=== PATIENT | male | born 1955 | race Caucasian/White ===

== ENCOUNTER → 2018-08-14 09:06 | Outpatient (CLI) | payer BC, SELFPAY ==
--- NOTE | 2018-08-14 09:17 | CA_ITS ---
PROCEDURE: 2-D M-mode and color Doppler study INDICATIONS FOR THE TEST: Chest pain+ COPD Heart Murmur Tobacco Smoking+ Palpitations Fatigue Syncope Edema Hypertension+Diabetes Mellitus Rheumatic Fever SOB+AGUDELO Obesity Hyperlipidemia+ Family History HD Additional History PATIENT INFORMATION HEIGHT: 66 WEIGHT:150 GENDER: Male B/P:145/68 2-D/M-MODE INTERPRETATION: 2-D MEASUREMENTS OBSERVED VALUES IN CMS Right Ventricular Dimension (RVDd) 2.0 Interventricular Septum (Thickness)(IVsd) 0.6 Left Ventricular Internal Dimensions(LVIDd) 5.5 Left Ventricular Posterior Wall (Thickness)(LVPWd) 0.8 Aortic Root 1.9 Aortic Cusp Separation 1.6 Left Atrial Dimensions (LAD) 3.3 2D 1. Left atrium is mildly enlarged, left ventricle is normal size, mild concentric left ventricular hypertrophy, visually estimated ejection fraction 55% with no regional wall motion abnormality. 2. The right atrium and right ventricle are normal size and contractility. 3. The aortic valve is minimally thickened and fibrosed. 4. The mitral and tricuspid valvular grossly normal. 5. The pulmonic valve is poorly visualized. 6. No significant pericardial effusion noted. DOPPLER INTERROGATION: Doppler interrogation of the aortic, mitral and tricuspid valvular presence of mild mitral and tricuspid regurgitation, tricuspid regurgitation jet velocity is inadequate for calculation of the right ventricular systolic pressure, grade 2 diastolic dysfunction seen with tissue Doppler evidence of raised left atrial pressure. CONCLUSION: 1. Mildly enlarged left atrium, normal left ventricular size, mild concentric left ventricular hypertrophy, visually estimated ejection fraction 55% with no regional wall motion abnormality, grade 2 diastolic dysfunction seen with tissue Doppler evidence of raised left atrial pressure. 2. Mild mitral and tricuspid regurgitation 3. No significant pericardial effusion noted.
== END ==
PROVIDERS: PCP Family Medicine; Referring Provider Nurse Practitioner Family; Visit Provider Nurse Practitioner Family
DX: R07.9 Chest pain, unspecified (principal); I10 Essential (primary) hypertension; E78.5 Hyperlipidemia, unspecified; Z72.0 Tobacco use
CPT/HCPCS: 93306

== ENCOUNTER → 2018-08-16 09:13 | Outpatient (CLI) | payer BC, SELFPAY ==
[2018-08-16 13:17] LABS: Alanine Aminotransferase 57 U/L (12-78); Albumin Level 4.2 gm/dL (3.4-5.0); Albumin/Globulin Ratio 1.4 (1.1-1.8); Alkaline Phosphatase 94 U/L (46-116); Anion Gap 11.5 mEq/L (5-15); Aspartate Amino Transferase 21 U/L (15-37); Bilirubin,Total 0.4 mg/dL (0.2-1.0); Blood Urea Nitrogen 17 mg/dL (7-18); Calcium 8.9 mg/dL (8.5-10.1); Carbon Dioxide 31 mmol/L (21.0-32.0); Chloride 102 mmol/L (98-107); Chol/HDL Ratio 5.3 (1-3.5); Cholesterol 169 mg/dL (140-200); Creatinine,Serum 0.74 mg/dL (0.70-1.30); Estimated Glomerular Filt Rate 108 ml/min (>60); GFR (African American) 130 ML/MIN (>60); Glucose 132 mg/dL (74-106); HDL Cholesterol 32 mg/dL (27-67); LDL Cholesterol 97 mg/dL (0-130); Potassium 4.5 mmoL/L (3.5-5.1); Sodium 140 mmol/L (136-145); Total Protein,Serum 7.2 gm/dL (6.4-8.2); Triglycerides 202 mg/dL (30-200); VLDL Cholesterol 40 mg/dL (0-40)
[2018-08-18 13:07] LABS: PSA, Free 0.17 ng/mL; Prostate Specific Ag 0.7 ng/mL (0.0-4.0)
== END ==
PROVIDERS: Visit Provider Nurse Practitioner
DX: I10 Essential (primary) hypertension (principal); E78.5 Hyperlipidemia, unspecified; Z12.5 Encounter for screening for malignant neoplasm of prostate
CPT/HCPCS: 36415; 80053; 80061; 84153; 84154

== ENCOUNTER → 2018-08-21 08:28 | Outpatient (CLI) | payer BC, SELFPAY ==
[2018-08-21 09:03] LABS: Basophils # 0.1 K/mm3 (0-0.2); Basophils % 0.9 % (0.1-2.0); Eosinophils # 0.4 K/mm3 (0.0-0.4); Hematocrit 45.9 % (42.0-52.0); Hemoglobin 15.8 g/dL (14.1-18.0); Lymphocytes # 2.2 K/mm3 (0.7-4.5); Lymphocytes % 28.1 % (10-50); Mean Corpuscular HGB Conc 34.4 g/dL (31.8-35.4); Mean Corpuscular Hemoglobin 30.7 pg (27.0-31.2); Mean Corpuscular Volume 89.1 fl (80-94); Monocytes # 0.4 K/mm3 (0.1-1.0); Monocytes % 5.8 % (1.7-9.3); Neutrophils # 4.6 K/mm3 (1.8-7.8); Neutrophils % 60.2 % (37.0-80.0); Platelet Count 215 K/mm3 (142-424); Red Blood Count 5.15 M/mm3 (4.60-6.20); Red Cell Distribution Width 13.7 % (11.5-17.5); White Blood Count 7.7 K/mm3 (4.8-10.8)
[2018-08-21 09:54] LABS: Alanine Aminotransferase 58 U/L (12-78); Albumin Level 4.2 gm/dL (3.4-5.0); Alkaline Phosphatase 93 U/L (46-116); Aspartate Amino Transferase 17 U/L (15-37); Bilirubin,Direct 0.1 mg/dL (0.0-0.2); Bilirubin,Indirect 0.5 mg/dL (0.0-0.9); Bilirubin,Total 0.6 mg/dL (0.2-1.0); Chol/HDL Ratio 4.7 (1-3.5); Cholesterol 168 mg/dL (140-200); HDL Cholesterol 36 mg/dL (27-67); LDL Cholesterol 114 mg/dL (0-130); Total Protein,Serum 7.2 gm/dL (6.4-8.2); Triglycerides 92 mg/dL (30-200); VLDL Cholesterol 18 mg/dL (0-40)
== END ==
PROVIDERS: Visit Provider Urology
DX: R07.9 Chest pain, unspecified (principal); R94.31 Abnormal electrocardiogram [ECG] [EKG]; R06.00 Dyspnea, unspecified
CPT/HCPCS: 36415; 80061; 80076; 85025

== ENCOUNTER → 2018-08-25 14:45 | Outpatient (CLI) | payer BC, SELFPAY ==
--- NOTE | 2018-08-25 14:57 | CT_ITS ---
CT chest wo con HISTORY: Pulmonary nodules, chest pain, smoker ITS.REASON: cp ORDERING PHYSICIAN: Jatin Alvarez MD PATIENT AGE: 63 years COMPARISON: None Technique: Axial images obtained. Sagittal, and coronal reformatted images are also generated and reviewed. All CT scans at the facility use one or more dose reduction, viz: automated exposure control, ma/kV adjustment per patient size (including targeted exams where dose is matched to indication, i.e. head), or iterative reconstruction technique. FINDINGS: No evidence of aortic aneurysm. Scattered small nodes are present in the mediastinum and axilla. No mediastinal or hilar. No coronary artery calcification apparent. COPD. Biapical scarring. There is a calcified granuloma in the right lower lobe medially. No central obstructing lesions. No suspicious pulmonary nodules. There is a faint groundglass opacity in the left apex at 6 mm nonspecific. Upper abdominal images show a 2 mm stone in the mid polar region of the right kidney. No acute bony findings. IMPRESSION: 1. COPD with biapical scarring and old granulomatous disease. 2. 6 mm groundglass opacity left upper lobe nonspecific. Suggest 6-12 month follow-up in this patient with positive smoking history. 3. Nonobstructing right nephrolithiasis
== END ==
LOC: RAD 14:48
PROVIDERS: PCP Family Medicine; Visit Provider Internal Medicine
DX: I51.9 Heart disease, unspecified (principal); R06.00 Dyspnea, unspecified; R07.9 Chest pain, unspecified; R94.31 Abnormal electrocardiogram [ECG] [EKG]
CPT/HCPCS: 71250

== ENCOUNTER → 2019-02-09 10:19 | Outpatient (CLI) | payer BC, SELFPAY ==
--- NOTE | 2019-02-09 10:29 | XR_ITS ---
PROCEDURE: XR HIP RT 2-3V W/PELVIS CLINICAL INDICATION: RT HIP PAIN COMPARISON: No exams were available for comparison FINDINGS: No fracture or dislocation is evident. No significant degenerative change. No lytic or blastic change. Unremarkable soft tissues. Sclerosis is present involving the right SI joint inferiorly IMPRESSION: 1. Negative right hip. 2. Sclerosis of the right SI joint inferiorly Dictated by: Víctor Chavez MD 02/09/2019 11:41 Electronically signed by Víctor Chavez MD in [place] 02/09/2019 11:41
--- NOTE | 2019-02-09 10:29 | XR_ITS ---
PROCEDURE: XR HIP LT 2-3V W/PELVIS CLINICAL INDICATION: LT HIP PAIN COMPARISON: ABDPELW/O CT ABD PELVIS W/O CONTRAST from 06/09/2012 XR HIP RT 2-3V W/PELVIS from 02/09/2019 FINDINGS: No fracture or dislocation is evident. No significant degenerative change. No lytic or blastic change. Unremarkable soft tissues. There is sclerosis of the inferior aspect of the left SI joint. There is a small area of sclerosis involving the left inferior pubic ramus nonspecific. IMPRESSION: 1. Negative left hip 2. Mild sclerosis left SI joint inferiorly Dictated by: Víctor Chavez MD 02/09/2019 11:43 Electronically signed by Víctor Chavez MD in [facility] 02/09/2019 11:43
--- NOTE | 2019-02-09 10:29 | XR_ITS ---
PROCEDURE: XR LUMBAR SPINE MIN 4V CLINICAL INDICATION: LOW BACK PAIN COMPARISON: No exams were available for comparison FINDINGS: There is normal alignment. No fracture or dislocation. No lytic or blastic change. There is some mild sclerosis of the inferior aspect of both SI joints. IMPRESSION: 1. Negative lumbar spine. 2. Mild sclerosis of the SI joints inferiorly Dictated by: Víctor Chavez MD 02/09/2019 11:40 Electronically signed by Víctor Chavez MD in [facility] 02/09/2019 11:40
--- NOTE | 2019-02-09 10:29 | XR_ITS ---
PROCEDURE: XR KNEE LT 3V CLINICAL INDICATION: LT KNEE PAIN COMPARISON: No exams were available for comparison FINDINGS: No fracture or dislocation. No lytic or blastic change. There is normal mineralization. The joint spaces are well-preserved. No significant degenerative/arthritic changes. No erosive changes evident. Other findings:None. IMPRESSION: No acute findings. Dictated by: Víctor hCavez MD 02/09/2019 11:43 Electronically signed by Víctor Chavez MD in [facility] 02/09/2019 11:43
== END ==
PROVIDERS: PCP Family Medicine; Visit Provider Nurse Practitioner Family
DX: M25.562 Pain in left knee (principal); M25.551 Pain in right hip; M25.552 Pain in left hip; M54.16 Radiculopathy, lumbar region
CPT/HCPCS: 72110; 73502; 73562

== ENCOUNTER → 2020-01-09 08:19 | Outpatient (CLI) | payer BC, MEDICAID, SELFPAY ==
[2020-01-09 10:03] LABS: Coronavirus 19 IgG Antibody Negative (Negative); Coronavirus 19 IgM Antibody Negative (Negative)
== END ==
PROVIDERS: Visit Provider Internal Medicine Gastroenterology
DX: Z01.89 Encounter for other specified special examinations (principal); Z12.11 Encounter for screening for malignant neoplasm of colon; Z13.810 Encounter for screening for upper gastrointestinal disorder; R19.7 Diarrhea, unspecified
CPT/HCPCS: 36415; 86328

== ENCOUNTER 2020-01-11 09:13 | Day surgery (SDC) | payer MEDICAID, SELFPAY ==
[2020-01-05 13:11] VITALS: BMI 25.4
[2020-01-11] VITALS (7 sets, daily range): BP systolic 117–180; BP diastolic 63–81; PULSE 55–63; RESP 16–18; TEMP 36.3–36.4; O2SAT 95–100
--- NOTE | 2020-01-11 10:49 | HMH.ANESCL ---
[facility] Anesthesia Checklist - Patient Identification Patient Identification: Arm Band - Structural Data Admitted From: Home Planned Operative Procedure/s: colonoscopy Consent for Planned Operative Procedure(s) Verified: Yes Verified Documents: Surgical Consent, History and Physical - NPO Status Verified Time NPO: 00:00 - Additional verifications Anesthesia Reactions: No - Airway Assessment C-Spine Mobility Assessed: Yes (mp2) TMJ Mobility Assessed: Yes Dentition: Dentures-good fit - Neurological Assessment Level of Consciousness: Awake, Alert - Anesthesia Plan Anesthesia Risk discussed: Yes Anesthesia Plan: Verified ASA Class: III Anesthesia Type: MAC [facility] History I have reviewed the patient's past medical history: Yes Medical History: Reports:: Chronic Obstructive Pulmonary Disease (COPD), Gastroesophageal Reflux Disease(GERD), Hyperlipidemia, Hypertension Denies:: Cancer, Diabetes Mellitus Type 1, Diabetes Mellitus Type 2, MRSA, Seizures *Have you ever received a pneumonia vaccine?: No *Have you received a flu vaccine this season?: No Anesthesia experience/problems:: nac Other Surgeries: Yes: Appendectomy Amputation: No Fractures: No - *Social History Last grade of school completed: GED Smoking Status: Former smoker #Yrs smoked (if former smoker): 40 Alcohol Intake: never Substance Use Type: former substance user, marijuana *Occupational Status:: employed *Travel in the last 8 weeks: None Family Hx:: Coronary Artery Disease, Heart Attack, Cancer, Diabetes
--- NOTE | 2020-01-11 11:43 | HMH.PROC ---
[facility] Procedure Note Procedure Note:: Upper Endoscopy Procedure Report: Esophagogastroduodenoscopy with cold biopsies and TTS balloon dilation Endoscopost: Quique Harper II, MD Referring Physician: Carlos Bustos MD Date of Procedure: January 11, 2020 Equipment: Olympus GIF 180 standard upper endoscope Sedation: MAC sedation Indications: Mr. Rodríguez is a 64-year-old gentleman with postprandial bloating and some left upper quadrant abdominal discomfort. He has had early satiety and intermittent dysphagia. He did have heartburn but this is now well controlled with omeprazole. He is here for diagnostic panendoscopy and this is his first upper endoscopy. He reports no nausea, vomiting, hematemesis or melena. He reports no weight loss or hematochezia. Procedure: Prior to the procedure, a history and physical exam was performed, and patient's medications and allergies were reviewed. The risks, benefits and alternatives of the sedation and procedure were discussed with the patient. All questions were answered and informed consent was obtained. The patient was brought to the procedure room. Patient identification and proposed procedure were verified by the physician and the nurse. The patient was placed in a left lateral decubitus position and the scope was passed under direct vision. Throughout the procedure, the patient's blood pressure, pulse, and oxygen saturations were monitored continuously. The upper GI endoscopy was accomplished without difficulty. The patient tolerated the procedure well. Findings: The scope was passed directly into the upper esophagus and advanced to the third portion of the duodenum. The post bulbar duodenum and duodenal bulb were normal with normal mucosa and conniventes. The scope was withdrawn through a normal duodenal bulb and pylorus into the stomach. There was mild linear reactive gastropathy of the antrum and body of the stomach. The remainder of the antrum, body and fundus of the stomach were grossly normal. Upon retroflexion there was a small 2 cm hiatal hernia. 2 biopsies were taken in the antrum and along the lesser curvature for histology to rule out gastritis and/or H pylori. The scope was then withdrawn into the esophagus. There was a serrated Z line. There was no evidence of reflux esophagitis, Madison's or Schatzki's ring. There were tertiary contractions and evidence of moderate esophageal dysmotility. The entire esophagus was dilated to 60 [place]/20 mm with a TTS hydrostatic balloon. The remainder of the esophageal mucosa was normal. Impression: 1. Nonerosive GERD with moderate esophageal dysmotility and small 2 cm hiatal hernia 2. Linear reactive gastropathy Plan: I will follow-up the biopsies. The patient does have some functional dyspepsia. We will discuss additional treatment options. I will proceed with diagnostic colonoscopy.
--- NOTE | 2020-01-11 11:58 | P.PCN_ITS ---
[facility] Procedure Note Procedure Note:: Colonoscopy Procedure Report: Colonoscopy with cold snare polypectomy Endoscopist: Quique Harper II, MD Referring physician: Carlos Bustos MD Date of Procedure: January 11, 2020 Equipment: Olympus 180 variable stiffness pediatric colonoscope Sedation: MAC sedation Indication: Mr. Rodríguez is a 64-year-old gentleman who is here for diagnostic colonoscopy. The patient has had some intermittent bowel urgency in the morning without a bowel movement. This occurs once a week. The patient also has left upper quadrant abdominal pain and discomfort. He reports no rectal bleeding, weight loss or family history of colon cancer. This is the patient's first colonoscopy for diagnostic purposes. Procedure: Prior to the procedure, a history and physical exam was performed, and patient's medications and allergies were reviewed. The risks, benefits and alternatives of the sedation and procedure were discussed with the patient. All questions were answered and informed consent was obtained. The patient was brought to the procedure room. Patient identification and proposed procedure were verified by the physician and the nurse. The patient was placed in a left lateral decubitus position and the scope was passed under direct vision. Throughout the procedure, the patient's blood pressure, pulse, and oxygen saturations were monitored continuously. The colonoscopy was accomplished without difficulty. The patient tolerated the procedure well. Findings: On digital rectal examination there was normal rectal tone. There were no external hemorrhoids. The colonoscope was introduced through the anal canal to the rectum and advanced to the cecum. The ileocecal valve and appendiceal orifice were identified. The scope was advanced a short distance into the ileum which appeared grossly normal. The scope was then withdrawn into the colon. There were 3 polyps (cecum x2 and ascending x1) removed via cold snare polypectomy. These were all 3 and 4 mm in size. There was some angulation at the splenic flexure suggestive of a splenic flexure syndrome. There were very mildly scattered diverticuli throughout the descending and sigmoid colon (LEFT colon). The rectum itself was normal. Upon retroflexion within the rectum there were grade 1-2 internal hemorrhoids. The preparation was excellent throughout with [place] Preparation Score of 9. The cecal time was 10 minutes. Impression: 1. Diminutive colonic polyps x3 2. Mild left-sided diverticulosis 3. 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 Grade 1-2 internal hemorrhoids Plan: I will follow up the polyp pathology and recommend repeat colonoscopy again in 5 years based upon the polyp histology. I will recommend dietary measures and fiber bowel regimen.
== END 2020-01-11 12:54 | disposition home or self-care (01) ==
LOC: OUTP 09:15
PROVIDERS: PCP Family Medicine; Visit Provider Internal Medicine Gastroenterology
PROC: 0DJ08ZZ Inspection of Upper Intestinal Tract, Via Natural or Artificial Opening Endoscopic (ICD-10-PCS; CPT 43235; principal; 2020-01-11 10:30)
DX: K21.9 Gastro-esophageal reflux disease without esophagitis (principal); K22.4 Dyskinesia of esophagus; K31.9 Disease of stomach and duodenum, unspecified; K44.9 Diaphragmatic hernia without obstruction or gangrene; K63.5 Polyp of colon; K57.30 Diverticulosis of large intestine without perforation or abscess without bleeding; K64.0 First degree hemorrhoids; J44.9 Chronic obstructive pulmonary disease, unspecified; E78.5 Hyperlipidemia, unspecified; I10 Essential (primary) hypertension; Z90.49 Acquired absence of other specified parts of digestive tract; Z80.9 Family history of malignant neoplasm, unspecified
CPT/HCPCS: 43239; 43249; 45385; C1726

== ENCOUNTER → 2020-07-14 07:21 | Outpatient (CLI) | payer OTHER, SELFPAY ==
--- NOTE | 2020-07-14 07:32 | XR_ITS ---
PROCEDURE: XR CHEST 2V CLINICAL HISTORY: COPD COMPARISON: CR CXR1 CHEST-PORTABLE from 12/25/[address] chest wo con from 08/25/2018 FINDINGS: The cardiomediastinal silhouette and pulmonary vascularity are within normal limits. The lungs are clear without infiltrates, suspicious nodules, or pleural effusions. No acute bony abnormalities. IMPRESSION: No acute findings. Dictated by: Blanca Olguin 07/14/2020 11:46 Blanca Olguin in [place] 07/14/2020 11:46
[2020-07-14 08:23] LABS: Chloride 101 mmol/L (98-107); Sodium 135 mmol/L (136-145)
[2020-07-14 08:25] LABS: Blood Urea Nitrogen 14 mg/dl (9-20); Estimated Glomerular Filt Rate 114 ml/min (>60); GFR (African American) 138 ML/MIN (>60)
[2020-07-14 08:26] LABS: Alanine Aminotransferase 44 U/L (12-78); Albumin Level 4.6 g/dl (3.5-5.0); Albumin/Globulin Ratio 2.1 (1.1-1.8); Alkaline Phosphatase 124 U/L (38-126); Aspartate Amino Transferase 26 U/L (17-59); Bilirubin,Total 0.9 mg/dl (0.2-1.3); Carbon Dioxide 25 mmol/L (22.0-30.0); Cholesterol 177 mg/dl (140-200); Globulin 2.2 g/dL (1.3-3.2); Total Protein,Serum 6.8 g/dl (6.3-8.2); Triglycerides 252 mg/dl (30-150); VLDL Cholesterol 50 mg/dL (0-40)
[2020-07-14 08:27] LABS: Calcium 9.9 mg/dl (8.4-10.2); Chol/HDL Ratio 5.1 (1-3.5); Glucose 393 mg/dl (74-100); HDL Cholesterol 35 mg/dl (40-60)
[2020-07-14 08:37] LABS: Direct LDL Cholesterol 89.74 mg/dL (100-129)
[2020-07-14 08:43] LABS: T4 (Thyroxine) 10.1 ug/dl (5.53-11.0)
[2020-07-14 08:56] LABS: Thyroid Stimulating Hormone 1.97 uIU/mL (0.465-4.68)
[2020-07-14 08:58] LABS: 25-OH Vitamin D, Total 21.4 ng/mL (30-100)
[2020-07-14 09:04] LABS: Basophils # 0.1 K/mm3 (0-0.2); Basophils % 0.7 % (0.1-2.0); Eosinophils # 0.3 K/mm3 (0.0-0.4); Eosinophils % 2.5 % (0.1-12.0); Hematocrit 47.9 % (42.0-52.0); Hemoglobin 15.5 g/dL (14.1-18.0); Lymphocytes # 1.3 K/mm3 (0.7-4.5); Lymphocytes % 12.6 % (10-50); Mean Corpuscular HGB Conc 32.3 g/dL (31.8-35.4); Mean Corpuscular Hemoglobin 29.6 pg (27.0-31.2); Mean Corpuscular Volume 91.7 fl (80-94); Mean Platelet Volume 9.5 fl (7.4-10.4); Monocytes # 0.4 K/mm3 (0.1-1.0); Neutrophils # 8.4 K/mm3 (1.8-7.8); Neutrophils % 80.2 % (37.0-80.0); Platelet Count 219 K/mm3 (142-424); Red Blood Count 5.23 M/mm3 (4.60-6.20); Red Cell Distribution Width 13.6 % (11.5-17.5); White Blood Count 10.5 K/mm3 (4.8-10.8)
[2020-07-14 12:40] LABS: Hemoglobin A1C 11.2 % (4.0-6.0)
[2020-07-15 12:37] LABS: PSA, Free 0.11 ng/mL; Prostate Specific Ag 0.4 ng/mL (0.0-4.0)
[2020-07-16 19:12] LABS: C-Peptide 2.7 ng/mL (1.1-4.4)
[2020-07-22 17:02] LABS: Testosterone, Total, LC/MS 133.4 ng/dL (264.0-916.0); Testosterone,Free 1.8 pg/mL (6.6-18.1)
== END ==
PROVIDERS: Visit Provider Nurse Practitioner Family
DX: E11.9 Type 2 diabetes mellitus without complications (principal); E78.5 Hyperlipidemia, unspecified; I10 Essential (primary) hypertension; I51.89 Other ill-defined heart diseases; J44.9 Chronic obstructive pulmonary disease, unspecified; N52.9 Male erectile dysfunction, unspecified; R73.09 Other abnormal glucose
CPT/HCPCS: 36415; 71046; 80053; 80061; 82306; 83036; 84153; 84154; 84402; 84403; 84436; 84443; 84681; 85025

== ENCOUNTER → 2020-07-20 17:26 | Outpatient (CLI) | payer OTHER, SELFPAY ==
[2020-07-20 19:12] LABS: Creatinine,Urine Random 27 mg/dL (Not Estab.)
== END ==
PROVIDERS: Visit Provider Nurse Practitioner Family
DX: E11.9 Type 2 diabetes mellitus without complications (principal); Z79.84 Long term (current) use of oral hypoglycemic drugs
CPT/HCPCS: 82043; 82570

== ENCOUNTER → 2020-09-02 13:34 | Outpatient (CLI) | payer OTHER, SELFPAY ==
--- NOTE | 2020-09-02 13:42 | CA_ITS ---
APPROVED REPORT EXAM: Comprehensive 2D, Doppler, and color-flow Echocardiogram Billing Checker: Lisette Molina CRT Ht: 5 ft 6 in Wt: 157lbs BSA: 1.80 BP: 130/72 mmHg Indications: COPD, Shortness of Breath, Diabetes, Hyperlipidemia 2D Dimensions LVOT 1.98 cm (M/F) 1.5-2.5 LA Volume 26.30 mL LA Volume Index 14.60 mL/m2 (M/F) 16-34 M-Mode Dimensions RVDd 2.58 cm (0.9-2.6) LA Diam 3.87 cm (1.9-4.0) LVDd 4.55 cm (3.5-5.7) Ao Diam 2.99 cm (2.0-3.7) LVDs 2.81 cm (3.5-5.7) IVSd 1.17 cm (0.6-1.1) PWd 0.84 cm (0.6-1.1) EF (Teich) 68.60% FS 38.20% EDV (Teich) 94.90 mL ESV (Teich) 29.80 mL LV Diastology E Decel Time 150.00 (160-240 msec) E/A Ratio 1.26 Aortic Valve AO Peak GR. 4.80 mmHg Mitral Valve MV E Max Dario. 110.00 (40-130 cm/s) MV A Velocity 87.00 (40-130 cm/s) E/A Ratio 1.26 MV Decel. Time 150.00 (160-240 ms) MV PHT 44.00 ms Tricuspid Valve TR P. Velocity 194.00 cm/s RAP Estimate 10.00 mmHg RVSP 25.00 mmHg Left Ventricle Technically difficult study because of the patient factors and poor acoustic windows. Left atrium is normal size, left ventricle is normal size, there is no concentric left ventricular hypertrophy, visually estimated ejection fraction 55% with no regional wall motion abnormality, diastolic parameters are inconclusive. Right Ventricle Right atrium and right ventricle are normal size and contractility. Aortic Valve Aortic valve is minimally thickened and fibrosed, there is no aortic stenosis or aortic insufficiency. Mitral Valve Mitral valve is grossly normal, there is trace mitral regurgitation. Tricuspid Valve Tricuspid valve grossly normal, there is trace tricuspid regurgitation. Tricuspid regurgitation jet velocity is inadequate for calculation of the right ventricular systolic pressure. Pulmonic Valve Pulmonic valve is poorly visualized. Great Vessels Aortic root is normal size. Pericardium No significant pericardial effusion noted. Conclusion 1. Normal left ventricular size, preserved left ventricular systolic function, visually estimated ejection fraction 55% with no regional wall motion abnormality, diastolic parameters are within normal range. 2. Trace mitral and tricuspid regurgitation. 3. No significant pericardial effusion noted. Electronically signed by : Cornelius Paris, 09/06/2020 05:55:48
[2020-09-02 13:49] LABS: Chloride 102 mmol/L (98-107); Potassium 3.9 mmoL/L (3.5-5.1); Sodium 139 mmol/L (136-145)
[2020-09-02 13:51] LABS: Blood Urea Nitrogen 21 mg/dl (9-20); Estimated Glomerular Filt Rate 85 ml/min (>60); GFR (African American) 103 ML/MIN (>60)
[2020-09-02 13:52] LABS: Anion Gap 13.9 mEq/L (5-15); Calcium 9.3 mg/dl (8.4-10.2); Carbon Dioxide 27 mmol/L (22.0-30.0); Glucose 98 mg/dl (74-100)
== END ==
PROVIDERS: PCP Nurse Practitioner Family; Visit Provider Nurse Practitioner Family
DX: R06.00 Dyspnea, unspecified (principal); I10 Essential (primary) hypertension; R94.31 Abnormal electrocardiogram [ECG] [EKG]; E78.5 Hyperlipidemia, unspecified
CPT/HCPCS: 36415; 80048; 93306

== ENCOUNTER → 2020-09-09 13:21 | Outpatient (POV) | payer OTHER, SELFPAY | PROVIDERS: Visit Provider Internal Medicine Nephrology | DX: Z00.00 Encounter for general adult medical examination without abnormal findings (principal) ==

== ENCOUNTER → 2020-10-12 09:35 | Outpatient (CLI) | payer OTHER, SELFPAY ==
--- NOTE | 2020-10-12 | CA_ITS ---
APPROVED REPORT Raw Cheese Worker: ISAMAR Study Quality: Excellent Indications: protienuria Risk Factors Hypertension Diabetes Renal Artery Doppler Origin (R) 197.5/ cm/sec Proximal (R) 172.4/ cm/sec Mid (R) 184.0/ cm/sec Distal (R) 132.9/ cm/sec Renal Aorta Ratio (R) 1.86 Segmental A. (R) / cm/sec RI: 0.69 Segmental A. Sup (R) 20.0/6.0 cm/sec Segmental A. Mid (R) 23.0/7.0 cm/sec Segmental A. Inf (R) 36.0/9.0 cm/sec Origin (L) 166.1/ cm/sec Proximal (L) 132.0/ cm/sec Mid (L) 129.1/ cm/sec Distal (L) 138.0/ cm/sec Renal Aorta Ratio (L) 1.56 Segmental A. (L) / cm/sec RI: 0.72 Segmental A. Sup (L) 47.0/12.0 cm/sec Segmental A. Mid (L) 55.0/16.0 cm/sec Segmental A. Inf (L) 38.0/11.0 cm/sec Renal Measurements Kidney Size (R) 11.7x4.2 cm Cortical Thickness (R) 1.7 cm Kidney Size (L) 12.7x5.6 cm Cortical Thickness (L) 158.0 cm Findings Based on the renal/aortic ratio there is no evidence of significant stenosis in the right renal artery. Based on the renal/aortic ratio there is no evidence of significant stenosis in the left renal artery. The proximal abdominal aorta is patent without significant stenoses or dilatations. Conclusion Based on the renal/aortic ratio there is no evidence of significant stenosis in the right renal artery. Based on the renal/aortic ratio there is no evidence of significant stenosis in the left renal artery. The proximal abdominal aorta is patent without significant stenoses or dilatations. Electronically signed by : Víctor Chavez MD 10/13/2020 15:31:26
--- NOTE | 2020-10-12 09:39 | US_ITS ---
PROCEDURE: US KIDNEY CLINICAL INDICATION: PROTEINURIA,UNSPECIFIED, CKD STAGE 2 COMPARISON: No exams were available for comparison FINDINGS: The right kidney is 12 x 5 x 4 cm. The left kidney is 13 x 5 x 5 cm. No hydronephrosis. No renal mass or perinephric fluid collection. Normal echogenicity of the kidneys. IMPRESSION: Unremarkable bilateral renal ultrasound Dictated by: Víctor Chavez MD 10/12/2020 14:54 Víctor Chavez MD in [place] 10/12/2020 14:54
== END ==
PROVIDERS: PCP Nurse Practitioner Family; Visit Provider Internal Medicine Nephrology
DX: I15.0 Renovascular hypertension (principal); N18.2 Chronic kidney disease, stage 2 (mild); R80.9 Proteinuria, unspecified; E11.9 Type 2 diabetes mellitus without complications; Z79.84 Long term (current) use of oral hypoglycemic drugs
CPT/HCPCS: 76770; 93976

== ENCOUNTER → 2020-10-13 13:40 | Outpatient (CLI) | payer OTHER, SELFPAY ==
[2020-10-13 13:58] LABS: Basophils # 0.1 K/mm3 (0-0.2); Basophils % 0.9 % (0.1-2.0); Eosinophils # 0.3 K/mm3 (0.0-0.4); Eosinophils % 3.9 % (0.1-12.0); Hemoglobin 14.2 g/dL (14.1-18.0); Lymphocytes # 2.2 K/mm3 (0.7-4.5); Lymphocytes % 25.8 % (10-50); Mean Corpuscular HGB Conc 32.9 g/dL (31.8-35.4); Mean Corpuscular Volume 88.2 fl (80-94); Mean Platelet Volume 9.8 fl (7.4-10.4); Monocytes # 0.5 K/mm3 (0.1-1.0); Monocytes % 5.5 % (1.7-9.3); Neutrophils # 5.4 K/mm3 (1.8-7.8); Platelet Count 234 K/mm3 (142-424); Red Blood Count 4.88 M/mm3 (4.60-6.20); Red Cell Distribution Width 13.6 % (11.5-17.5); White Blood Count 8.4 K/mm3 (4.8-10.8)
[2020-10-13 14:08] LABS: Alanine Aminotransferase 28 U/L (12-78); Albumin Level 4.3 g/dl (3.5-5.0); Alkaline Phosphatase 80 U/L (38-126); Anion Gap 13.3 mEq/L (5-15); Aspartate Amino Transferase 25 U/L (17-59); Bilirubin,Total 0.4 mg/dl (0.2-1.3); Blood Urea Nitrogen 15 mg/dl (9-20); Calcium 9.3 mg/dl (8.4-10.2); Carbon Dioxide 26 mmol/L (22.0-30.0); Chloride 104 mmol/L (98-107); Chol/HDL Ratio 4.7 (1-3.5); Cholesterol 140 mg/dl (140-200); Estimated Glomerular Filt Rate 114 ml/min (>60); GFR (African American) 138 ML/MIN (>60); Globulin 2.2 g/dL (1.3-3.2); Glucose 132 mg/dl (74-100); HDL Cholesterol 30 mg/dl (40-60); Potassium 4.3 mmoL/L (3.5-5.1); Sodium 139 mmol/L (136-145); Total Protein,Serum 6.5 g/dl (6.3-8.2); Triglycerides 181 mg/dl (30-150); VLDL Cholesterol 36 mg/dL (0-40)
[2020-10-13 14:18] LABS: Direct LDL Cholesterol 75.78 mg/dL (100-129)
[2020-10-13 14:24] LABS: 25-OH Vitamin D, Total 29.9 ng/mL (30-100); T4 (Thyroxine) 7.4 ug/dl (5.53-11.0)
[2020-10-13 14:41] LABS: Thyroid Stimulating Hormone 1.04 uIU/mL (0.465-4.68)
[2020-10-13 15:17] LABS: Hemoglobin A1C 6.9 % (4.0-6.0)
== END ==
PROVIDERS: Visit Provider Nurse Practitioner Family
DX: E11.9 Type 2 diabetes mellitus without complications (principal); E78.5 Hyperlipidemia, unspecified; I10 Essential (primary) hypertension; E55.9 Vitamin D deficiency, unspecified; Z79.899 Other long term (current) drug therapy
CPT/HCPCS: 80053; 80061; 82306; 83036; 84436; 84443; 85025

== ENCOUNTER → 2020-10-28 12:49 | Outpatient (CLI) | payer OTHER, SELFPAY ==
[2020-10-28 13:33] LABS: Hematocrit 41.5 % (42.0-52.0); Hemoglobin 14.3 g/dL (14.1-18.0); Mean Corpuscular HGB Conc 34.6 g/dL (31.8-35.4); Mean Corpuscular Hemoglobin 29.9 pg (27.0-31.2); Mean Corpuscular Volume 86.6 fl (80-94); Platelet Count 244 K/mm3 (142-424); Red Blood Count 4.79 M/mm3 (4.60-6.20); Red Cell Distribution Width 14.2 % (11.5-17.5); White Blood Count 8.2 K/mm3 (4.8-10.8)
[2020-10-28 14:03] LABS: Hemoglobin A1C 6.6 % (4.0-6.0)
[2020-10-28 14:09] LABS: Alanine Aminotransferase 33 U/L (12-78); Albumin Level 4.5 g/dl (3.5-5.0); Albumin/Globulin Ratio 2.1 (1.1-1.8); Alkaline Phosphatase 77 U/L (38-126); Aspartate Amino Transferase 24 U/L (17-59); Bilirubin,Total 0.6 mg/dl (0.2-1.3); Blood Urea Nitrogen 15 mg/dl (9-20); Calcium 9.3 mg/dl (8.4-10.2); Carbon Dioxide 28 mmol/L (22.0-30.0); Chloride 104 mmol/L (98-107); Estimated Glomerular Filt Rate 114 ml/min (>60); GFR (African American) 138 ML/MIN (>60); Globulin 2.1 g/dL (1.3-3.2); Glucose 171 mg/dl (74-100); Sodium 140 mmol/L (136-145); Total Protein,Serum 6.6 g/dl (6.3-8.2); Uric Acid 5.7 mg/dl (3.5-8.5)
[2020-10-28 14:21] LABS: Intact Parathyroid Hormone 71.2 pg/mL (7.5-53.5)
[2020-10-28 14:27] LABS: 25-OH Vitamin D, Total 33.4 ng/mL (30-100)
== END ==
PROVIDERS: Visit Provider Internal Medicine Nephrology
DX: N18.2 Chronic kidney disease, stage 2 (mild) (principal); R80.9 Proteinuria, unspecified; I10 Essential (primary) hypertension; E11.9 Type 2 diabetes mellitus without complications; Z79.84 Long term (current) use of oral hypoglycemic drugs
CPT/HCPCS: 36415; 80053; 82306; 83036; 83970; 84550; 85014; 85018; 85048; 85049

== ENCOUNTER → 2020-10-29 07:57 | Outpatient (CLI) | payer OTHER, SELFPAY ==
[2020-10-29 08:00] LABS: Microscopic, Urine URINE MICROSCOPIC (MICROSCOPIC)
[2020-10-29 08:34] LABS: Appearance,Urine CLEAR (Clear); Bilirubin,Urine Negative (Negative); Blood, Urine Negative (Negative); Color,Urine YELLOW (Yellow); Glucose,Urine (UA) Negative (Negative); Ketones,Urine Negative (Negative); Leukocyte Esterase,Urine Negative (Negative); Nitrate,Urine Negative (Negative); PH,Urine 6.5 (5.0-8.5); Protein,Urine TRACE (Negative); Urobilinogen,Urine 0.2 EU/dl (0.2)
[2020-10-29 08:58] LABS: RBC,Urine Occasional #/hpf (0-3)
[2020-10-29 08:59] LABS: Squamous Epithelial Cell,Urine Occasional #/hpf (0-5)
[2020-10-29 11:34] LABS: Creatinine,Urine Random 83 mg/dL (Not Estab.)
== END ==
PROVIDERS: Visit Provider Internal Medicine Nephrology
DX: N18.2 Chronic kidney disease, stage 2 (mild) (principal); R80.9 Proteinuria, unspecified; Z79.84 Long term (current) use of oral hypoglycemic drugs; I12.9 Hypertensive chronic kidney disease with stage 1 through stage 4 chronic kidney disease, or unspecified chronic kidney disease; E11.9 Type 2 diabetes mellitus without complications; Z72.0 Tobacco use
CPT/HCPCS: 81001; 82570; 84155

== ENCOUNTER → 2020-11-04 13:50 | Outpatient (POV) | payer OTHER, SELFPAY | PROVIDERS: Visit Provider Internal Medicine Nephrology | DX: Z00.00 Encounter for general adult medical examination without abnormal findings (principal) ==

== ENCOUNTER → 2021-01-09 15:42 | Outpatient (CLI) | payer OTHER, SELFPAY | PROVIDERS: Visit Provider Nurse Practitioner Family | DX: L02.11 Cutaneous abscess of neck (principal) | CPT/HCPCS: 87070; 87205 ==

== ENCOUNTER → 2021-01-13 09:02 | Outpatient (CLI) | payer OTHER, SELFPAY ==
[2021-01-13 09:19] LABS: Basophils # 0.1 K/mm3 (0-0.2); Basophils % 1.2 % (0.1-2.0); Eosinophils # 0.5 K/mm3 (0.0-0.4); Eosinophils % 4.8 % (0.1-12.0); Hematocrit 44.1 % (42.0-52.0); Hemoglobin 14.9 g/dL (14.1-18.0); Lymphocytes # 2.8 K/mm3 (0.7-4.5); Lymphocytes % 29.4 % (10-50); Mean Corpuscular HGB Conc 33.8 g/dL (31.8-35.4); Mean Corpuscular Hemoglobin 30.8 pg (27.0-31.2); Mean Corpuscular Volume 90.9 fl (80-94); Mean Platelet Volume 9.1 fl (7.4-10.4); Monocytes # 0.4 K/mm3 (0.1-1.0); Monocytes % 3.8 % (1.7-9.3); Neutrophils # 5.9 K/mm3 (1.8-7.8); Neutrophils % 60.8 % (37.0-80.0); Platelet Count 288 K/mm3 (142-424); Red Blood Count 4.85 M/mm3 (4.60-6.20); Red Cell Distribution Width 14.3 % (11.5-17.5); White Blood Count 9.6 K/mm3 (4.8-10.8)
[2021-01-13 10:07] LABS: Hemoglobin A1C 6.3 % (4.0-6.0)
[2021-01-13 10:12] LABS: Alanine Aminotransferase 41 U/L (12-78); Albumin Level 4.5 g/dl (3.5-5.0); Albumin/Globulin Ratio 1.7 (1.1-1.8); Alkaline Phosphatase 87 U/L (38-126); Anion Gap 11.5 mEq/L (5-15); Aspartate Amino Transferase 26 U/L (17-59); Bilirubin,Total 0.3 mg/dl (0.2-1.3); Blood Urea Nitrogen 21 mg/dl (9-20); Carbon Dioxide 30 mmol/L (22.0-30.0); Chloride 105 mmol/L (98-107); Chol/HDL Ratio 4.6 (1-3.5); Cholesterol 156 mg/dl (140-200); Estimated Glomerular Filt Rate 114 ml/min (>60); GFR (African American) 138 ML/MIN (>60); Globulin 2.6 g/dL (1.3-3.2); Glucose 157 mg/dl (74-100); HDL Cholesterol 34 mg/dl (40-60); Potassium 4.5 mmoL/L (3.5-5.1); Sodium 142 mmol/L (136-145); Total Protein,Serum 7.1 g/dl (6.3-8.2); Triglycerides 177 mg/dl (30-150); VLDL Cholesterol 35 mg/dL (0-40)
[2021-01-13 10:24] LABS: Direct LDL Cholesterol 85.47 mg/dL (100-129)
[2021-01-13 10:30] LABS: T4 (Thyroxine) 8.8 ug/dl (5.53-11.0)
[2021-01-13 10:44] LABS: Thyroid Stimulating Hormone 1.64 uIU/mL (0.465-4.68)
== END ==
PROVIDERS: Visit Provider Nurse Practitioner Family
DX: E11.9 Type 2 diabetes mellitus without complications (principal); Z79.84 Long term (current) use of oral hypoglycemic drugs; Z79.899 Other long term (current) drug therapy
CPT/HCPCS: 36415; 80053; 80061; 83036; 84436; 84443; 85025

== ENCOUNTER → 2021-07-07 16:00 | Outpatient (CLI) | payer OTHER, SELFPAY ==
[2021-07-07 16:07] LABS: Basophils # 0.1 K/mm3 (0-0.2); Basophils % 1.8 % (0.1-2.0); Eosinophils # 0.4 K/mm3 (0.0-0.4); Eosinophils % 4.7 % (0.1-12.0); Hematocrit 44.6 % (42.0-52.0); Hemoglobin 14.6 g/dL (14.1-18.0); Lymphocytes # 1.7 K/mm3 (0.7-4.5); Mean Corpuscular HGB Conc 32.7 g/dL (31.8-35.4); Mean Corpuscular Hemoglobin 30.6 pg (27.0-31.2); Mean Corpuscular Volume 93.7 fl (80-94); Mean Platelet Volume 9.8 fl (7.4-10.4); Monocytes # 0.4 K/mm3 (0.1-1.0); Monocytes % 4.7 % (1.7-9.3); Neutrophils # 5.2 K/mm3 (1.8-7.8); Neutrophils % 66.8 % (37.0-80.0); Platelet Count 292 K/mm3 (142-424); Red Blood Count 4.76 M/mm3 (4.60-6.20); Red Cell Distribution Width 14.3 % (11.5-17.5); White Blood Count 7.8 K/mm3 (4.8-10.8)
[2021-07-07 17:07] LABS: Hemoglobin A1C 7.4 % (4.0-6.0)
[2021-07-07 17:09] LABS: Chloride 102 mmol/L (98-107); Potassium 4.5 mmoL/L (3.5-5.1); Sodium 138 mmol/L (136-145)
[2021-07-07 17:11] LABS: Alanine Aminotransferase 60 U/L (12-78); Alkaline Phosphatase 105 U/L (38-126); Aspartate Amino Transferase 39 U/L (17-59); Bilirubin,Total 0.3 mg/dl (0.2-1.3); Blood Urea Nitrogen 12 mg/dl (9-20); Estimated Glomerular Filt Rate 85 ml/min (>60); GFR (African American) 103 ML/MIN (>60)
[2021-07-07 17:12] LABS: Albumin Level 4.5 g/dl (3.5-5.0); Albumin/Globulin Ratio 2.1 (1.1-1.8); Anion Gap 14.5 mEq/L (5-15); Calcium 8.8 mg/dl (8.4-10.2); Carbon Dioxide 26 mmol/L (22.0-30.0); Cholesterol 161 mg/dl (140-200); Globulin 2.1 g/dL (1.3-3.2); Glucose 194 mg/dl (74-100); HDL Cholesterol 32 mg/dl (40-60); Total Protein,Serum 6.6 g/dl (6.3-8.2); Triglycerides 332 mg/dl (30-150); VLDL Cholesterol 66 mg/dL (0-40)
[2021-07-07 17:26] LABS: Direct LDL Cholesterol 87.15 mg/dL (100-129)
[2021-07-07 17:31] LABS: T4 (Thyroxine) 8.1 ug/dl (5.53-11.0)
[2021-07-07 17:45] LABS: Thyroid Stimulating Hormone 2.32 uIU/mL (0.465-4.68)
[2021-07-12 10:13] LABS: C-Peptide 7.5 ng/mL (1.1-4.4)
== END ==
PROVIDERS: Visit Provider Nurse Practitioner Family
DX: E11.9 Type 2 diabetes mellitus without complications (principal); Z79.84 Long term (current) use of oral hypoglycemic drugs; Z79.899 Other long term (current) drug therapy
CPT/HCPCS: 80053; 80061; 82043; 82306; 83036; 84436; 84443; 84681; 85025

== ENCOUNTER → 2021-07-28 08:56 | Outpatient (CLI) | payer OTHER, SELFPAY ==
[2021-07-28 09:32] LABS: Microscopic, Urine URINE MICROSCOPIC (MICROSCOPIC)
[2021-07-28 09:51] LABS: Hematocrit 43.6 % (42.0-52.0); Hemoglobin 14.5 g/dL (14.1-18.0)
[2021-07-28 10:17] LABS: Appearance,Urine CLEAR (Clear); Bilirubin,Urine Negative (Negative); Blood, Urine Negative (Negative); Color,Urine YELLOW (Yellow); Glucose,Urine (UA) Negative (Negative); Ketones,Urine Negative (Negative); Leukocyte Esterase,Urine Negative (Negative); Nitrate,Urine Negative (Negative); Protein,Urine 1+ (Negative); Urobilinogen,Urine 0.2 EU/dl (0.2)
[2021-07-28 10:21] LABS: Alanine Aminotransferase 56 U/L (12-78); Albumin Level 4.3 g/dl (3.5-5.0); Alkaline Phosphatase 79 U/L (38-126); Anion Gap 9.4 mEq/L (5-15); Aspartate Amino Transferase 32 U/L (17-59); Bilirubin,Total 0.5 mg/dl (0.2-1.3); Blood Urea Nitrogen 18 mg/dl (9-20); Calcium 9.9 mg/dl (8.4-10.2); Carbon Dioxide 32 mmol/L (22.0-30.0); Chloride 103 mmol/L (98-107); Estimated Glomerular Filt Rate 97 ml/min (>60); GFR (African American) 118 ML/MIN (>60); Globulin 2.1 g/dL (1.3-3.2); Glucose 183 mg/dl (74-100); Potassium 4.4 mmoL/L (3.5-5.1); Sodium 140 mmol/L (136-145); Total Protein,Serum 6.4 g/dl (6.3-8.2)
[2021-07-28 10:23] LABS: Creatinine,Urine Random 94 mg/dL (Not Estab.)
[2021-07-28 10:36] LABS: Squamous Epithelial Cell,Urine Occasional #/hpf (0-5); WBC,Urine Occasional #/hpf (0-3)
== END ==
PROVIDERS: Visit Provider Internal Medicine Nephrology
DX: R80.9 Proteinuria, unspecified (principal); N18.2 Chronic kidney disease, stage 2 (mild); I10 Essential (primary) hypertension; E11.9 Type 2 diabetes mellitus without complications; Z79.84 Long term (current) use of oral hypoglycemic drugs
CPT/HCPCS: 36415; 80053; 81001; 82570; 84155; 85014; 85018

== ENCOUNTER → 2021-08-04 13:14 | Outpatient (POV) | payer OTHER, SELFPAY | PROVIDERS: Visit Provider Internal Medicine Nephrology | DX: Z00.00 Encounter for general adult medical examination without abnormal findings (principal) ==

== ENCOUNTER → 2021-08-30 08:01 | Outpatient (CLI) | payer OTHER, SELFPAY ==
[2021-08-30 09:08] LABS: Alanine Aminotransferase 54 U/L (12-78); Albumin Level 4.3 g/dl (3.5-5.0); Albumin/Globulin Ratio 2.2 (1.1-1.8); Alkaline Phosphatase 87 U/L (38-126); Anion Gap 13.9 mEq/L (5-15); Aspartate Amino Transferase 37 U/L (17-59); Bilirubin,Total 0.3 mg/dl (0.2-1.3); Blood Urea Nitrogen 15 mg/dl (9-20); Calcium 9.6 mg/dl (8.4-10.2); Carbon Dioxide 28 mmol/L (22.0-30.0); Chloride 100 mmol/L (98-107); Estimated Glomerular Filt Rate 97 ml/min (>60); GFR (African American) 118 ML/MIN (>60); Glucose 166 mg/dl (74-100); Potassium 3.9 mmoL/L (3.5-5.1); Sodium 138 mmol/L (136-145); Total Protein,Serum 6.3 g/dl (6.3-8.2)
== END ==
PROVIDERS: Visit Provider Nurse Practitioner Family
DX: B35.1 Tinea unguium (principal); E11.9 Type 2 diabetes mellitus without complications; L60.3 Nail dystrophy; Z79.4 Long term (current) use of insulin
CPT/HCPCS: 36415; 80053

== ENCOUNTER → 2022-04-26 13:33 | Outpatient (CLI) | payer MEDICARE, SELFPAY ==
[2022-04-26 14:48] LABS: Alanine Aminotransferase 36 U/L (12-78); Albumin Level 3.9 g/dl (3.5-5.0); Alkaline Phosphatase 92 U/L (38-126); Aspartate Amino Transferase 26 U/L (17-59); Bilirubin,Direct 0.1 mg/dl (0.0-0.4); Bilirubin,Indirect 0.2 mg/dL (0.0-0.9); Bilirubin,Total 0.3 mg/dl (0.2-1.3); Bilirubin,Unconjugated 0.2 mg/dL (0.0-1.1); Chol/HDL Ratio 4.1 (1-3.5); Cholesterol 142 mg/dl (140-200); HDL Cholesterol 35 mg/dl (40-60); Triglycerides 219 mg/dl (30-150); VLDL Cholesterol 44 mg/dL (0-40)
== END ==
PROVIDERS: PCP Nurse Practitioner Family; Visit Provider Nurse Practitioner
DX: E78.2 Mixed hyperlipidemia (principal); I10 Essential (primary) hypertension
CPT/HCPCS: 36415; 80061; 80076

== ENCOUNTER → 2022-08-02 07:46 | Outpatient (CLI) | payer MEDICARE, SELFPAY ==
[2022-08-02 07:59] LABS: Microscopic, Urine URINE MICROSCOPIC (MICROSCOPIC)
[2022-08-02 08:15] LABS: Hematocrit 35.7 % (42.0-52.0); Hemoglobin 12.5 g/dL (14.1-18.0); Mean Corpuscular Hemoglobin 31.4 pg (27.0-31.2); Mean Corpuscular Volume 89.7 fl (80-94); Platelet Count 218 K/mm3 (142-424); Red Blood Count 3.98 M/mm3 (4.60-6.20); Red Cell Distribution Width 14.2 % (11.5-17.5); White Blood Count 6.7 K/mm3 (4.8-10.8)
[2022-08-02 09:18] LABS: Appearance,Urine CLEAR (Clear); Bilirubin,Urine Negative (Negative); Blood, Urine Negative (Negative); Color,Urine YELLOW (Yellow); Glucose,Urine (UA) Negative (Negative); Ketones,Urine Negative (Negative); Leukocyte Esterase,Urine Negative (Negative); Nitrate,Urine Negative (Negative); Protein,Urine Negative (Negative); Urobilinogen,Urine 0.2 EU/dl (0.2)
[2022-08-02 09:20] LABS: Alanine Aminotransferase 30 U/L (12-78); Albumin Level 4.6 g/dl (3.5-5.0); Albumin/Globulin Ratio 2.2 (1.1-1.8); Alkaline Phosphatase 75 U/L (38-126); Anion Gap 13.8 mEq/L (5-15); Aspartate Amino Transferase 25 U/L (17-59); Bilirubin,Total 0.4 mg/dl (0.2-1.3); Blood Urea Nitrogen 18 mg/dl (9-20); Calcium 9.8 mg/dl (8.4-10.2); Carbon Dioxide 29 mmol/L (22.0-30.0); Chloride 101 mmol/L (98-107); Estimated Glomerular Filt Rate 97 ml/min (>60); GFR (African American) 117 ML/MIN (>60); Globulin 2.1 g/dL (1.3-3.2); Glucose 153 mg/dl (74-100); Potassium 4.8 mmoL/L (3.5-5.1); Sodium 139 mmol/L (136-145); Total Protein,Serum 6.7 g/dl (6.3-8.2); Uric Acid 6.1 mg/dl (3.5-8.5)
[2022-08-02 09:23] LABS: Creatinine,Urine Random 19 mg/dL (Not Estab.)
[2022-08-02 09:37] LABS: 25-OH Vitamin D, Total 45.8 ng/mL (30-100)
[2022-08-02 09:43] LABS: WBC,Urine Occasional #/hpf (0-3)
== END ==
LOC: LAB 07:50
PROVIDERS: PCP Nurse Practitioner Family; Visit Provider Internal Medicine Nephrology
DX: N18.2 Chronic kidney disease, stage 2 (mild) (principal); I10 Essential (primary) hypertension; E11.9 Type 2 diabetes mellitus without complications; R80.9 Proteinuria, unspecified; Z79.84 Long term (current) use of oral hypoglycemic drugs; E55.9 Vitamin D deficiency, unspecified
CPT/HCPCS: 36415; 80053; 81001; 82306; 82570; 83036; 84155; 84550; 85014; 85018; 85048; 85049

== ENCOUNTER 2022-11-26 10:39 | Emergency (ER) | payer MEDICARE, SELFPAY ==
[2022-11-26 10:39] VITALS: BP 155/98; PULSE 84; RESP 20; TEMP 36.4; O2SAT 99; BMI 24.8
[2022-11-26 10:44] VITALS: BP 155/98; PULSE 94; RESP 18; O2SAT 99
--- NOTE | 2022-11-26 10:51 | PC.NURSE ---
DR ARDON AT BEDSIDE
--- NOTE | 2022-11-26 10:57 | XR_ITS ---
FINAL REPORT TECHNIQUE: Single view chest CLINICAL HISTORY: dyspnea COMPARISON: 07/14/2020 FINDINGS: A single view of the chest was obtained. The heart and mediastinum are within normal limits. The lungs are clear. There is no pneumothorax. Osseous structures are unremarkable. IMPRESSION: No acute cardiopulmonary process. Reviewed, Interpreted and Dictated by Christian Aguilar III, MD Transcribed by Maite Sheets Authenticated and [facility]
--- NOTE | 2022-11-26 10:57 | CT_ITS ---
FINAL REPORT CLINICAL HISTORY: RANKIN x 3 wks FINDINGS: Axial images of the head were obtained without contrast. Coronal reformatted images were also obtained.This study was performed with techniques to keep radiation doses as low as reasonably achievable (ALARA). Individualized dose reduction techniques using automated exposure control or adjustment of mA and/or kV according to the patient''s size were employed. There is no evidence of intracranial hemorrhage or mass. The ventricular size is within normal limits. There is no evidence of shift of the midline structures. No abnormal extra axial fluid collection is identified. No skull abnormality is seen on the bone window images. There is mucosal thickening of the sinuses with severe hypoplasia of the maxillary sinuses. IMPRESSION: No acute intracranial abnormality. 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 Reviewed, Interpreted and Dictated by Christian Aguilar III, MD Transcribed by Maite Sheets Authenticated and [facility]
--- NOTE | 2022-11-26 11:01 | HMH.EDGENADL ---
Discharge Plan Disposition Patient Disposition: Home, Self-Care Prescriptions Prescriptions: New azithromycin 250 mg tablet 250 mg PO DAILY 4 Days Qty: 4 0RF Rx Instructions: start on day 2 of therapy (day after ED visit) pseudoephedrine HCl 120 mg tablet extended release 120 mg PO BID PRN (Reason: nasal congestion) 7 Days Qty: 14 0RF albuterol sulfate 90 mcg/actuation HFA aerosol inhaler 4 inh inhalation Q4H PRN (Reason: shortness of breath or wheezing) Qty: 8.5 0RF Rx Instructions: 4 puffs every 4 hours for 48 hours then as needed for shortness of breath or wheezing following amoxicillin-pot clavulanate 875-125 mg tablet 1 tab PO BID 10 Days Qty: 20 0RF No Action umeclidinium-vilanterol 62.5-25 mcg/actuation blister with device 1 inh INHALATION DAILY metformin 500 mg tablet 1,000 mg PO BID 90 Days Qty: 360 2RF (DME) Dexcom G6 Transmitter Device See Rx Instructions .MEDSUPPLY Qty: 1 3RF Rx Instructions: As directed spironolactone 25 mg tablet 25 mg PO DAILY loratadine 10 mg tablet 10 mg PO DAILY albuterol sulfate 90 mcg/actuation HFA aerosol inhaler 2 puff INHALATION Q6H PRN aspirin [Adult Low Dose Aspirin] 81 mg tablet,delayed release (DR/EC) 81 mg PO DAILY Qty: 30 2RF Gvoke HypoPen 2-Pack 1 mg/0.2 mL auto-injector 1 mg SQ ONCE Rx Instructions: use only if glucose less than 50 and unable to eat and drink to fix glucose losartan 100 mg tablet 100 mg PO DAILY Qty: 90 3RF hydrochlorothiazide 25 mg tablet 25 mg PO DAILY Qty: 90 3RF isosorbide mononitrate 30 mg tablet extended release 24 hr 30 mg PO DAILY Qty: 90 3RF lovastatin 40 mg tablet 40 mg PO HS Qty: 90 3RF fluticasone propionate [Flonase Allergy Relief] 50 mcg/actuation spray,suspension 1 spray INTRANASAL QDAY Qty: 9.9 0RF Rx Instructions: administer into each nostril citalopram 20 mg tablet See Rx Instructions .ROUTE .COMPLEX Qty: 30 3RF Dose Instruction: TAKE ONE TABLET BY MOUTH EVERY DAY Rx Instructions: TAKE ONE TABLET BY MOUTH EVERY DAY (DME) Dexcom G6 Sensor Device See Rx Instructions .ROUTE .COMPLEX Qty: 3 4RF Dose Instruction: USE DIRECTED Rx Instructions: USE DIRECTED (DME) lancets [TRUEplus Lancets] 28 gauge misc See Rx Instructions .ROUTE .MEDSUPPLY Qty: 100 3RF Rx Instructions: As directed (DME) Dexcom G6 Transmitter Device See Rx Instructions .MEDSUPPLY Qty: 1 1RF Rx Instructions: change every 90 days (DME) FreeStyle Lite Strips Strip See Rx Instructions .Route Qty: 100 0RF Rx Instructions: As directed (DME) FreeStyle Pastor 14 Day Sensor Kit See Rx Instructions .ROUTE .MEDSUPPLY Qty: 1 0RF Rx Instructions: As directed (DME) blood-glucose meter,continuous Misc See Rx Instructions .ROUTE .MEDSUPPLY Qty: 1 0RF Rx Instructions: As directed (DME) FreeStyle Pastor 14 Day [place] Misc See Rx Instructions .Route Qty: 1 2RF Rx Instructions: As directed omeprazole 20 mg capsule,delayed release(DR/EC) 20 mg PO DAILY Qty: 90 1RF Referrals Follow up/Referrals: Miles Canada APRN [Primary Care Provider] - See instructions Activity Restrictions/Add. Instructions Additional Instructions/Restrictions: Return with any neurologic complaints such as changes in mental status or focal neurologic abnormalities like weakness in your upper extremities or lower extremities or any other strokelike symptoms. Return with worsening headache or shortness of breath. Clinical Impressions Clinical Impression: Acute exacerbation of chronic obstructive pulmonary disease, Acute bacterial sinusitis, Headache Discharge ED Provider: Adán Padilla General Adult HPI General Chief complaint: Dizziness Stated complaint: dizzy Time Seen by Provider: 11/26/22 10:48 Mode of Arrival: Ambulatory Source of Inf
--- NOTE | 2022-11-26 11:14 | ECG_ITS ---
APPROVED REPORT Exam: Resting ECG HR:75 bpm ECG Measurements Heart Rate 75 AXES [place] 165 P 70 QRSd 97 QRS 77 QT 375 T 59 QTc 403 Conclusion SINUS RHYTHM NONSPECIFIC ST & T-WAVE ABNORMALITY BORDERLINE ECG UNCONFIRMED REPORT Electronically signed by : Carlos Tucker MD 11/26/2022 13:57:46
[2022-11-26 11:29] LABS: Basophils # 0.1 K/mm3 (0-0.2); Basophils % 0.5 % (0.1-2.0); Eosinophils # 0.4 K/mm3 (0.0-0.4); Eosinophils % 3.7 % (0.1-12.0); Hematocrit 47.4 % (42.0-52.0); Hemoglobin 15.8 g/dL (14.1-18.0); Lymphocytes # 2.6 K/mm3 (0.7-4.5); Lymphocytes % 24.6 % (10-50); Mean Corpuscular HGB Conc 33.4 g/dL (31.8-35.4); Mean Corpuscular Hemoglobin 29.5 pg (27.0-31.2); Mean Corpuscular Volume 88.2 fl (80-94); Mean Platelet Volume 9.3 fl (7.4-10.4); Monocytes # 0.5 K/mm3 (0.1-1.0); Monocytes % 4.5 % (1.7-9.3); Neutrophils % 66.7 % (37.0-80.0); Platelet Count 337 K/mm3 (142-424); Red Blood Count 5.37 M/mm3 (4.60-6.20); Red Cell Distribution Width 13.6 % (11.5-17.5); White Blood Count 10.5 K/mm3 (4.8-10.8)
[2022-11-26 11:30] VITALS: BP 131/72; PULSE 76; RESP 18; O2SAT 98
[2022-11-26 11:33] LABS: Alanine Aminotransferase 34 U/L (12-78); Albumin Level 5.3 g/dl (3.5-5.0); Albumin/Globulin Ratio 1.6 (1.1-1.8); Alkaline Phosphatase 102 U/L (38-126); Anion Gap 17.8 mEq/L (5-15); Aspartate Amino Transferase 30 U/L (17-59); Bilirubin,Total 0.5 mg/dl (0.2-1.3); Blood Urea Nitrogen 14 mg/dl (9-20); Calcium 10.2 mg/dl (8.4-10.2); Carbon Dioxide 26 mmol/L (22.0-30.0); Chloride 103 mmol/L (98-107); Creatinine Clearance Estimated 73 mL/min (50-200); Estimated Glomerular Filt Rate 97 ml/min (>60); GFR (African American) 117 ML/MIN (>60); Globulin 3.4 g/dL (1.3-3.2); Glucose 125 mg/dl (74-100); Potassium 4.8 mmoL/L (3.5-5.1); Sodium 142 mmol/L (136-145); Total Protein,Serum 8.7 g/dl (6.3-8.2)
--- NOTE | 2022-11-26 11:37 | PC.NURSE ---
pt given a lunch tray, no needs at this time
[2022-11-26 12:00] VITALS: BP 140/83; PULSE 72; RESP 24; O2SAT 99
--- NOTE | 2022-11-26 12:20 | PC.NURSE ---
respiratory called to complete breathing tx. d/c paperwork reviewed with pt
[2022-11-26 12:28] VITALS: BP 140/83; PULSE 82; RESP 20; TEMP 36.7; O2SAT 98
[2022-11-26 12:32] VITALS: PULSE 78; PULSE 80
== END 2022-11-26 12:36 | disposition home or self-care (01) ==
PROVIDERS: Emergency Provider Student in an Organized Health Care Education/Training Program; PCP Nurse Practitioner Family
DX: J44.1 Chronic obstructive pulmonary disease with (acute) exacerbation (principal); J01.90 Acute sinusitis, unspecified; R06.02 Shortness of breath; R42 Dizziness and giddiness; E11.9 Type 2 diabetes mellitus without complications; I11.9 Hypertensive heart disease without heart failure; E78.5 Hyperlipidemia, unspecified; F17.200 Nicotine dependence, unspecified, uncomplicated
CPT/HCPCS: 70450; 71045; 80053; 85025; 93005; 96361; 96374; 96375; 99285

== ENCOUNTER → 2022-12-20 06:36 | Outpatient (CLI) | payer MEDICARE, OTHER, SELFPAY ==
--- NOTE | 2022-12-20 06:39 | CT_ITS ---
FINAL REPORT TECHNIQUE: Thin section axial CT images of the facial bones and sinuses were obtained without contrast. Coronal and sagittal reformatted images were also obtained.This study was performed with techniques to keep radiation doses as low as reasonably achievable, (ALARA). Individualized dose reduction techniques using automated exposure control or adjustment of mA and/or kV according to the patient's size were employed. 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 There are defects in the medial maxillary swan, that may be congenital or may be the result of postoperative change. There is mild to moderate soft tissue thickening in the maxillary sinuses bilaterally as well as in several ethmoid air cells. There is left nasal septal deviation with a large left nasal septal spur. No fluid levels are identified. 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 Left nasal septal deviation with a large left nasal septal spur. Reviewed, Interpreted and Dictated by Christian Aguilar III, MD Transcribed by Vernell Quintero Authenticated and [facility]
== END ==
PROVIDERS: PCP Nurse Practitioner Family; Visit Provider Nurse Practitioner
DX: J32.8 Other chronic sinusitis (principal)
CPT/HCPCS: 70486

== ENCOUNTER → 2022-12-27 14:45 | Outpatient (POV) | payer MEDICARE, OTHER, SELFPAY | PROVIDERS: Visit Provider Specialist/Technologist | DX: Z00.00 Encounter for general adult medical examination without abnormal findings (principal) ==

== ENCOUNTER → 2023-01-17 08:15 | Outpatient (POV) | payer MEDICARE, OTHER, SELFPAY | PROVIDERS: Visit Provider Specialist/Technologist | DX: Z00.00 Encounter for general adult medical examination without abnormal findings (principal) ==

== ENCOUNTER → 2023-01-18 12:54 | Outpatient (CLI) | payer MEDICARE, OTHER, SELFPAY | PROVIDERS: PCP Nurse Practitioner Family; Visit Provider Nurse Practitioner Family | DX: G47.33 Obstructive sleep apnea (adult) (pediatric) (principal); R06.83 Snoring; K12.2 Cellulitis and abscess of mouth | CPT/HCPCS: G0399 ==

== ENCOUNTER → 2023-02-21 09:36 | Outpatient (CLI) | payer MEDICARE, OTHER, SELFPAY ==
[2023-02-21 09:45] LABS: Microscopic, Urine URINE MICROSCOPIC (MICROSCOPIC)
[2023-02-21 10:43] LABS: Appearance,Urine CLEAR (Clear); Bilirubin,Urine Negative (Negative); Blood, Urine Negative (Negative); Color,Urine YELLOW (Yellow); Glucose,Urine (UA) Negative (Negative); Ketones,Urine Negative (Negative); Leukocyte Esterase,Urine Negative (Negative); Nitrate,Urine Negative (Negative); Protein,Urine Negative (Negative); Urobilinogen,Urine 0.2 EU/dl (0.2)
[2023-02-21 10:54] LABS: Alanine Aminotransferase 40 U/L (12-78); Albumin Level 4.3 g/dl (3.5-5.0); Albumin/Globulin Ratio 2.2 (1.1-1.8); Alkaline Phosphatase 83 U/L (38-126); Anion Gap 15.6 mEq/L (5-15); Aspartate Amino Transferase 31 U/L (17-59); Bilirubin,Total 0.3 mg/dl (0.2-1.3); Blood Urea Nitrogen 17 mg/dl (9-20); Calcium 9.2 mg/dl (8.4-10.2); Carbon Dioxide 26 mmol/L (22.0-30.0); Chloride 101 mmol/L (98-107); Estimated Glomerular Filt Rate 61 ml/min (>60); GFR (African American) 74 ML/MIN (>60); Glucose 211 mg/dl (74-100); Potassium 4.6 mmoL/L (3.5-5.1); Sodium 138 mmol/L (136-145); Total Protein,Serum 6.3 g/dl (6.3-8.2); Uric Acid 6.5 mg/dl (3.5-8.5)
[2023-02-21 12:16] LABS: Creatinine,Urine Random 81 mg/dL (Not Estab.)
== END ==
PROVIDERS: PCP Nurse Practitioner Family; Visit Provider Internal Medicine Nephrology
DX: R80.9 Proteinuria, unspecified; I10 Essential (primary) hypertension; N18.2 Chronic kidney disease, stage 2 (mild); E11.9 Type 2 diabetes mellitus without complications; Z79.84 Long term (current) use of oral hypoglycemic drugs
CPT/HCPCS: 36415; 80053; 81001; 82570; 84155; 84550

== ENCOUNTER 2023-07-10 07:58 | Outpatient (CLI) | payer MEDICARE, OTHER, SELFPAY ==
[2023-07-10 08:07] LABS: Microscopic, Urine URINE MICROSCOPIC (MICROSCOPIC)
[2023-07-10 08:29] LABS: Hematocrit 44.5 % (42.0-52.0); Hemoglobin 14.5 g/dL (14.1-18.0); Mean Corpuscular HGB Conc 32.5 g/dL (31.8-35.4); Mean Corpuscular Hemoglobin 30.8 pg (27.0-31.2); Mean Corpuscular Volume 94.8 fl (80-94); Platelet Count 254 K/mm3 (142-424); Red Cell Distribution Width 13.9 % (11.5-17.5); White Blood Count 7.7 K/mm3 (4.8-10.8)
[2023-07-10 08:48] LABS: Appearance,Urine CLEAR (Clear); Bilirubin,Urine Negative (Negative); Blood, Urine Negative (Negative); Color,Urine YELLOW (Yellow); Glucose,Urine (UA) 1+ (Negative); Ketones,Urine Negative (Negative); Leukocyte Esterase,Urine Negative (Negative); Nitrate,Urine Negative (Negative); Protein,Urine 1+ (Negative); Specific Gravity, Urine 1.025 (1.005-1.030); Urobilinogen,Urine 0.2 EU/dl (0.2)
[2023-07-10 08:49] LABS: Chloride 105 mmol/L (98-107); Potassium 4.4 mmoL/L (3.5-5.1); Sodium 139 mmol/L (136-145)
[2023-07-10 08:50] LABS: Albumin Level 4.3 g/dl (3.5-5.0)
[2023-07-10 08:52] LABS: Anion Gap 8.4 mEq/L (5-15); Blood Urea Nitrogen 19 mg/dl (9-20); Carbon Dioxide 30 mmol/L (22.0-30.0); Estimated Glomerular Filt Rate 84 ml/min (>60); GFR (African American) 102 ML/MIN (>60); Phosphorous 3.8 mg/dl (2.5-4.5)
[2023-07-10 08:53] LABS: Calcium 9.9 mg/dl (8.4-10.2); Glucose 217 mg/dl (74-100)
[2023-07-10 09:02] LABS: Creatinine,Urine Random 102 mg/dL (Not Estab.)
[2023-07-10 09:04] LABS: Intact Parathyroid Hormone 53.6 pg/mL (7.5-53.5)
[2023-07-10 09:11] LABS: 25-OH Vitamin D, Total 57.4 ng/mL (30-100)
[2023-07-10 10:04] LABS: Bacteria,Urine Trace /lpf; Mucus,Urine Trace /lpf; Squamous Epithelial Cell,Urine Occasional #/hpf (0-5); WBC,Urine Occasional #/hpf (0-3)
[2023-07-10 10:05] LABS: RBC,Urine Occasional #/hpf (0-3)
== END 2023-07-10 23:59 ==
LOC: LAB 08:00
PROVIDERS: PCP Nurse Practitioner Family; Visit Provider Internal Medicine Nephrology
DX: N28.9 Disorder of kidney and ureter, unspecified (principal); E55.9 Vitamin D deficiency, unspecified; Z68.24 Body mass index [BMI] 24.0-24.9, adult
CPT/HCPCS: 36415; 80069; 81001; 82306; 82570; 83970; 84156; 85014; 85018; 85048; 85049

== ENCOUNTER 2023-07-15 13:15 | Outpatient (POV) | payer MEDICARE, OTHER, SELFPAY | END 2023-07-15 23:59 | disposition home or self-care (01) | LOC: SC 13:15 | PROVIDERS: Visit Provider Internal Medicine Nephrology | DX: R69 Illness, unspecified (principal) ==

== ENCOUNTER 2023-08-14 07:48 | Outpatient (CLI) | payer MEDICARE, OTHER, SELFPAY ==
--- NOTE | 2023-08-14 07:57 | ECG_ITS ---
APPROVED REPORT Exam: Resting ECG HR:64 bpm ECG Measurements Heart Rate 64 AXES WV 148 P 51 QRSd 110 QRS 24 QT 383 T -20 QTc 392 Conclusion SINUS RHYTHM MODERATE INTRAVENTRICULAR CONDUCTION DELAY [105+ ms QRS DURATION, 80+ ms Q/S IN V1/V2, NO Q AND 60+ ms R IN I/aVL/V5/V6] NONSPECIFIC ST & T-WAVE ABNORMALITY ABNORMAL ECG UNCONFIRMED REPORT Electronically signed by : Carlos Tucker MD 08/15/2023 21:29:40
[2023-08-14 08:28] LABS: Basophils # 0.1 K/mm3 (0-0.2); Basophils % 1.1 % (0.1-2.0); Eosinophils # 0.4 K/mm3 (0.0-0.4); Eosinophils % 4.8 % (0.1-12.0); Hemoglobin 13.3 g/dL (14.1-18.0); Lymphocytes % 25.4 % (10-50); Mean Corpuscular HGB Conc 32.5 g/dL (31.8-35.4); Mean Corpuscular Hemoglobin 29.8 pg (27.0-31.2); Mean Corpuscular Volume 91.7 fl (80-94); Monocytes # 0.4 K/mm3 (0.1-1.0); Monocytes % 5.2 % (1.7-9.3); Neutrophils # 4.9 K/mm3 (1.8-7.8); Neutrophils % 63.4 % (37.0-80.0); Platelet Count 259 K/mm3 (142-424); Red Blood Count 4.47 M/mm3 (4.60-6.20); Red Cell Distribution Width 14.4 % (11.5-17.5); White Blood Count 7.7 K/mm3 (4.8-10.8)
[2023-08-14 09:04] LABS: Anion Gap 13.5 mEq/L (5-15); Carbon Dioxide 24 mmol/L (22.0-30.0); Chloride 107 mmol/L (98-107); Potassium 4.5 mmoL/L (3.5-5.1); Sodium 140 mmol/L (136-145)
[2023-08-14 09:05] LABS: Blood Urea Nitrogen 26 mg/dl (9-20); Calcium 10.4 mg/dl (8.4-10.2); Estimated Glomerular Filt Rate 67 ml/min (>60); GFR (African American) 81 ML/MIN (>60); Glucose 159 mg/dl (74-100)
== END 2023-08-14 23:59 | disposition home or self-care (01) ==
LOC: LAB 07:49
PROVIDERS: PCP Nurse Practitioner Family; Visit Provider Otolaryngology
DX: J34.3 Hypertrophy of nasal turbinates (principal); J34.2 Deviated nasal septum; Z01.818 Encounter for other preprocedural examination; Z87.891 Personal history of nicotine dependence
CPT/HCPCS: 36415; 80048; 85025; 93005

== ENCOUNTER 2023-08-20 07:29 | Day surgery (SDC) | payer MEDICARE, OTHER, SELFPAY ==
[2023-08-19 09:04] VITALS: BMI 24.7
[2023-08-20] VITALS (9 sets, daily range): BP systolic 104–128; BP diastolic 29–72; PULSE 74–87; RESP 16–18; TEMP 36.6–43; O2SAT 92–96
[2023-08-20] MEDS: LACTATED RINGERS 1000ML 1,000 ML 25 ML IV (08:07)
[2023-08-20 08:16] LABS: POC Glucose,Bedside 183 (70-110)
--- NOTE | 2023-08-20 09:13 | EXP.ANES.CKL ---
[facility] Disclaimer: The information contained in this section may have been updated after the patient was seen, as this information can be updated by other users. Medical History Anxiety and depression GERD (gastroesophageal reflux disease) Bronchitis Uses hearing aid Emphysema/COPD Sleep apnea History of gastroesophageal reflux (GERD) SHAJI on CPAP Deviated septum Uvulitis Bilateral impacted cerumen Dizziness Hearing loss Tinnitus Chronic sinusitis Diabetes Diastolic dysfunction HLD (hyperlipidemia) HTN (hypertension) COPD (chronic obstructive pulmonary disease) Abnormal EKG Dyspnea Surgical History History of appendectomy Hx of cardiac cath Family History Other Alcoholism Anemia Cancer Diabetes Social History Smoking Status: Former smoker alcohol intake: never substance use type: former substance user and marijuana current occupational status: retired Travel in the last 8 weeks: None household members: spouse housing: house marital status: caffeine: No [facility] Anesthesia Checklist Patient Identification Patient Identification: Arm Band Structural Data Admitted From: Home Planned Operative Procedure/s: Nasal Septoplasty Consent for Planned Operative Procedure(s) Verified: Yes Verified Documents: Surgical Consent and History and Physical NPO Status Verified Time NPO: 00:00 Additional verifications Anesthesia Reactions: No Hx Blood Transfusions: No Blood Transfusion Reaction: No Airway Assessment Mallampati Score:: Class III C-Spine Mobility Assessed: Yes TMJ Mobility Assessed: Yes Dentition: Edentulous Neurological Assessment Level of Consciousness: Awake, Alert and Appropriate Anesthesia Plan Anesthesia Risk discussed: Yes Anesthesia Plan: Verified ASA Class: III Anesthesia Type: General
[2023-08-20] MEDS: LIDOCAINE 1% W/EPI 1:100,000 20ML VIAL 20 ML (09:21)
[2023-08-20] MEDS: 0.9 % SODIUM CHLORIDE 1000ML 1,000 ML 1000 ML IV (09:22)
[2023-08-20] MEDS: OXYMETAZOLINE NASAL SPRAY 0.05% 15ML 15 ML NS (09:22)
--- NOTE | 2023-08-20 10:41 | EXP.OP.NOTE ---
Date of procedure: 08/20/23 Pre-op Diagnosis:: Chronic sinusitis, deviated septum, right inferior turbinate hypertrophy Post-op Diagnosis:: Chronic sinusitis, deviated septum, right inferior turbinate hypertrophy Procedure performed:: Functional endoscopic sinus surgery with nasal endoscopy and bilateral anterior ethmoidectomy, nasal endoscopy and bilateral maxillary antrostomies, septoplasty, submucous resection right inferior turbinate Surgeon:: Eber Hall MD ALKYLATION OPERATOR:: Mukul [facility] Anesthesia: GETA Estimated blood loss (mL): 20 Operative findings:: Severely deviated septum to the left, right inferior turbinate hypertrophy, chronic anterior ethmoid and maxillary sinusitis with [facility] obstruction, dehiscent orbital fat in the left anterior ethmoid Operative note:: Patient was brought to the operating room and after adequate general anesthesia the nose was prepped and draped in the usual sterile fashion and 1% lidocaine with epinephrine used to locally infiltrate the septum, right inferior turbinate, and middle meatuses bilaterally. A right hemitransfixion incision was then made and mucoperichondrial flaps elevated off the bony and cartilaginous septum bilaterally and the cartilaginous septum was from the bony septum and a large bony spur from the vomer posteriorly was resected as was a cartilaginous spur on the floor the nose on the left side than the remaining cartilaginous septum was shortened by millimeter to a limited tension and then brought back over the midline maxillary crest and then the mucosal flaps returned to anatomic position and held in place with a 4-0 plain gut horizontal mattress suture and hemitransfixion incision closed with 4-0 chromic. Attention was then drawn to the right middle meatus. Using a 0 degree sinus endoscope the right middle meatus was visualized and then the middle turbinate medialized and then uncinectomy performed with a pediatric backbiter and the microdebrider clearing the the nasofrontal tract and infundibulum the natural ostium to the maxillary sinus was enlarged and cleared of mucosal disease to the maxillary sinus well aerated. The maxillary sinus was seen to be quite small. Mucosal disease in the anterior ethmoid was cleared with a microdebrider working through the ethmoid bulla until normal mucosa was seen posteriorly in the normal mucosa was spared. Nova pack was placed in the right middle meatus and attention drawn to the left side. The left middle turbinate was atrophic. The left middle turbinate was medialized and uncinectomy again performed with a pediatric backbiter and dehiscent orbital fat was seen at this point in the anterior ethmoid. This was left intact. Nasofrontal tract was cleared and infundibulum opened until the maxillary sinus was well aerated. The left maxillary sinus was also atrophic. Anterior ethmoidectomy was performed clearing disease polypoid mucosa in the anterior ethmoid working through the ethmoid bulla whilst sparing normal mucosa posteriorly nova pack was placed in the left middle meatus and then attention drawn to the right inferior turbinate. Using a turbinate blade and microdebrider, reduction of the inferior turbinate on the right side was done through an anterior stab incision and this was done in a submucosal plane. Jo splints were then placed on the septum and secured to the columella using 3-0 nylon and the procedure concluded. All counts correct and blood loss was minimal and he was sent to recovery in stable addition Condition: stable Disposition: PACU Complications:: No complications
--- NOTE | 2023-08-20 10:46 | EXP.ANES.I ---
[facility] Anesthesia Record Part I Anesthesia Record I Intake, IV Amount: 1,200 Hydration: Adequate Estimated blood loss (mL): 10 Urine output (mL): 0 Blood Products used (#): none Blood Pressure: 128/72 SaO2: 94 Pulse Rate: 87 Airway Patency: Patent Respiratory Rate: 16 Temperature: 98.2 F Patient is:: Drowsy and Stable Stable to PACU at:: 10:40
[2023-08-20 11:00] LABS: POC Glucose,Bedside 215 (70-110)
--- NOTE | 2023-08-20 12:49 | EXP.ANES.II ---
[facility] Anesthesia Record Part II Anesthesia Record Part II Discharge Time: 11:10 Destination: Surgical Day Care (OP Surgery) PACU nurse assessment reviewed?: Yes Patient Condition:: Good Anesthesia Complications:: None Swallowing reflex intact?: Yes Airway Patency: Patent Cyanosis?: No Blood Pressure: 105/29 SaO2: 94 Respiratory Rate: 16 Pulse Rate: 80 Temperature: 98.2 F Mental Status: Alert & Oriented Pain level:: 0 Nausea and/or vomitting:: None Intake, IV Amount: 0 Hydration: Adequate
== END 2023-08-20 11:30 | disposition home or self-care (01) ==
PROVIDERS: PCP Nurse Practitioner Family; Visit Provider Otolaryngology
PROC: (CPT 30520; principal; 2023-08-20 09:15)
DX: J32.9 Chronic sinusitis, unspecified (principal); J34.2 Deviated nasal septum; J34.3 Hypertrophy of nasal turbinates; E11.9 Type 2 diabetes mellitus without complications
CPT/HCPCS: 30140; 30520; 31254; 31256; 82962; 96374; J3490; J2405

== ENCOUNTER 2024-03-16 08:45 | Outpatient (CLI) | payer MEDICARE, OTHER, SELFPAY ==
[2024-03-16 08:55] LABS: Microscopic, Urine URINE MICROSCOPIC (MICROSCOPIC)
[2024-03-16 09:12] LABS: Basophils # 0.1 K/mm3 (0-0.2); Basophils % 1.3 % (0.1-2.0); Eosinophils # 0.4 K/mm3 (0.0-0.4); Eosinophils % 4.1 % (0.1-12.0); Hematocrit 44.3 % (42.0-52.0); Lymphocytes # 1.8 K/mm3 (0.7-4.5); Lymphocytes % 20.7 % (10-50); Mean Corpuscular HGB Conc 33.9 g/dL (31.8-35.4); Mean Corpuscular Hemoglobin 29.8 pg (27.0-31.2); Mean Corpuscular Volume 87.8 fl (80-94); Mean Platelet Volume 8.5 fl (7.4-10.4); Monocytes # 0.4 K/mm3 (0.1-1.0); Monocytes % 4.5 % (1.7-9.3); Neutrophils # 6.1 K/mm3 (1.8-7.8); Neutrophils % 69.2 % (37.0-80.0); Platelet Count 279 K/mm3 (142-424); Red Blood Count 5.04 M/mm3 (4.60-6.20); Red Cell Distribution Width 14.7 % (11.5-17.5); White Blood Count 8.8 K/mm3 (4.8-10.8)
[2024-03-16 10:09] LABS: Appearance,Urine CLEAR (Clear); Bilirubin,Urine Negative (Negative); Blood, Urine Negative (Negative); Color,Urine YELLOW (Yellow); Glucose,Urine (UA) 2+ (Negative); Ketones,Urine Negative (Negative); Leukocyte Esterase,Urine Negative (Negative); Nitrate,Urine Negative (Negative); Protein,Urine TRACE (Negative); Urobilinogen,Urine 0.2 EU/dl (0.2)
[2024-03-16 10:24] LABS: Albumin Level 4.7 g/dl (3.5-5.0); Anion Gap 14.2 mEq/L (5-15); Blood Urea Nitrogen 24 mg/dl (9-20); Calcium 10.3 mg/dl (8.4-10.2); Carbon Dioxide 28 mmol/L (22.0-30.0); Chloride 104 mmol/L (98-107); Estimated Glomerular Filt Rate 67 ml/min (>60); GFR (African American) 81 ML/MIN (>60); Glucose 189 mg/dl (74-100); Phosphorous 3.5 mg/dl (2.5-4.5); Potassium 4.2 mmoL/L (3.5-5.1); Sodium 142 mmol/L (136-145)
[2024-03-16 10:25] LABS: Creatinine,Urine Random 81 mg/dL (Not Estab.)
== END 2024-03-16 23:59 | disposition home or self-care (01) ==
LOC: LAB 08:46
PROVIDERS: PCP Nurse Practitioner Family; Visit Provider Internal Medicine Nephrology
DX: I12.9 Hypertensive chronic kidney disease with stage 1 through stage 4 chronic kidney disease, or unspecified chronic kidney disease (principal); N18.2 Chronic kidney disease, stage 2 (mild); Z87.891 Personal history of nicotine dependence
CPT/HCPCS: 36415; 80069; 81001; 82570; 84156; 85025

== ENCOUNTER 2024-03-26 09:14 | Outpatient (CLI) | payer MEDICARE, SELFPAY ==
[2024-03-26] MEDS: ALBUTEROL 0.083% 2.5 MG/3 ML NEB IH (09:39)
--- NOTE | 2024-03-26 09:39 | PC.NURSE ---
Pre and Post Spirometry and 6 Minute Walk Test completed without incident. Albuterol 0.083% given via HHN, per written protocol, Pt tolerated tx well.
== END 2024-03-26 23:59 | disposition home or self-care (01) ==
LOC: RT 09:16
PROVIDERS: PCP Nurse Practitioner Family; Visit Provider Internal Medicine Pulmonary Disease
DX: R06.09 Other forms of dyspnea (principal); J44.9 Chronic obstructive pulmonary disease, unspecified
CPT/HCPCS: 94060; 94618; J7613